=== PATIENT | male | born 1970 | race Caucasian/White ===

== ENCOUNTER 2016-09-11 21:47 | Emergency (ER) | payer OTHER | END 2016-09-11 23:31 | disposition home or self-care (01) | LOC: ER 21:47 | DX: L03.114 Cellulitis of left upper limb (principal); L02.414 Cutaneous abscess of left upper limb | CPT/HCPCS: 87070; 99070; 99283 ==

== ENCOUNTER 2016-09-12 12:52 | Emergency (ER) | payer OTHER | END 2016-09-12 14:51 | disposition home or self-care (01) | LOC: ER 12:52 | DX: Z48.817 Encounter for surgical aftercare following surgery on the skin and subcutaneous tissue (principal); Z86.19 Personal history of other infectious and parasitic diseases; K50.90 Crohn's disease, unspecified, without complications; K74.60 Unspecified cirrhosis of liver; Z85.79 Personal history of other malignant neoplasms of lymphoid, hematopoietic and related tissues; Z79.899 Other long term (current) drug therapy | CPT/HCPCS: 99070; 99282 ==